=== PATIENT | male | born 1935 | race Caucasian/White ===

== ENCOUNTER 2017-01-27 23:02 | Inpatient (IN) | payer MEDICARE, BC ==
--- NOTE | ~2017-01-27 | HP ---
History And Physical [address] [place]. [address] NAME: ANDRÉS MORFIN : 39 STATUS : ADM IN [facility]#: [id number] AGE: 82 ADM/REG DATE : 01/28/17 MR#: [id number] REPORT SERV DATE: 01/28/17 DICTATED BY: BRANDIE CANNON DATE: 01/28/17 REPORT STATUS : Draft TRANSCRIBED BY: MODRodrigo DATE: 01/28/17 DATE OF ADMISSION: 01/28/2017 CARDIOLOGY ADMISSION HISTORY AND PHYSICAL IDENTIFYING DATA: The patient is an 82-year-old man with known coronary heart disease, status post coronary artery bypass grafting in the year 1996 with subsequent balloon angioplasty. CHIEF COMPLAINT: Epigastric/substernal chest pain, starting last night at 2000 hours. HISTORY OF PRESENT ILLNESS: Mr. Morfin is a pleasant 82-year-old man, who is a patient of Dr. Vini Alvarenga. The patient was in his usual state of health until last night around 08:00 p.m. The patient had the abrupt onset of a substernal/epigastric chest pain associated with nausea and diaphoresis. The patient took three nitroglycerin, but realized that his nitroglycerin tablets were at least a year old. He did not have significant relief, and therefore called emergency medical services. The patient reports that, his pain had nearly resolved at the time of EMS arrival. The patient was able to walk himself into the ambulance. He was brought to [facility] Emergency Room. At that time, the patient's 12-lead EKG showed no acute changes. The patient does have a history of chronic atrial fibrillation, for which he takes Coumadin. The patient's chest pain had resolved at that time, the patient was admitted to the Cardiology Service for further evaluation. The patient's initial troponin was found to be 3.5. A repeat troponin performed this morning was significantly increased at approximately 30. The patient remains completely chest pain- free at this time. He further denies any unusual dyspnea, nausea, or indigestion. PAST MEDICAL HISTORY: 1. Coronary artery disease, status post bypass grafting as noted above. 2. Chronic atrial fibrillation. 3. Hypertension. 4. Dyslipidemia. PAST SURGICAL HISTORY: Significant only for coronary artery bypass grafting surgery. The patient's graft anatomy is a left internal mammary artery to LAD, saphenous vein graft to the posterior descending artery and previous saphenous vein graft to an obtuse marginal, which was found to be occluded at the time of the patient's last cardiac catheterization on 01/08/2007. FAMILY HISTORY: Negative for early coronary heart disease or sudden cardiac . SOCIAL HISTORY: The patient does not smoke cigarettes. He reports, he drinks three to four beers per day. He has no known history of drug use. The patient is and lives independently at home. ALLERGIES: THE PATIENT HAS DOCUMENTED ALLERGIES TO CODEINE AND POLLEN EXTRACTS. History And Physical [address] [address] NAME: ANDRÉS MORFIN : 39 STATUS : ADM IN [facility]#: [id number] AGE: 82 ADM/REG DATE : 01/28/17 MR#: [id number] REPORT SERV DATE: 01/28/17 DICTATED BY: BRANDIE CANNON DATE: 01/28/17 REPORT STATUS : Draft TRANSCRIBED BY: RUBEN DATE: 01/28/17 HOME MEDICATIONS: 1. Amlodipine 10 mg p.o. daily. 2. Aspirin 81 mg p.o. at bedtime. 3. Atorvastatin 40 mg p.o. at bedtime. 4. Hydrochlorothiazide 12.5 mg p.o. q.a.m. 5. Sublingual nitroglycerin 0.4 mg p.r.n. for chest pain. 6. Probenecid 500 mg p.o. q.a.m. 7. Ramipril 10 mg p.o. at bedtime. 8. Coumadin 3.5 mg p.o. q.p.m. REVIEW OF SYSTEMS: A complete 12-system review was performed. This is noncontributory except for the pertinent positives and negatives noted in the history of present illness above. PHYSICAL EXAMINATION: VITAL SIGNS: Temperature is 97.9 degrees Fahrenheit, blood pressure is 143/75 mmHg, heart rate is 54 beats per minute and irregular, respirations 18, and oxygen saturation is 98% on a 2 L nasal cannula. CONSTITUTIONAL: The patient is a well-nourished, well-developed, elderly, white man, who is presently comfortable and in no acute distress. EYES: PERRL, EOMI, clear conjunctiva. HEAD/MNT: NCAT with moist mucous membranes and grossly normal hard and soft palate. NECK: Supple with no obvious thyromegaly or lymphadenopathy CARDIOVASCULAR: There is an irregularly irregular rhythm with a variable S1 and a physiologically split second heart sound. A faint grade 1 to 2 over 6 early peaking systolic murmur is noted at the right upper sternal border with radiation to the sternal notch. The carotid upstroke is normal. The jugular venous pressure appears normal. PULMONARY: Clear to auscultation bilaterally with no wheezing, rales, rhonchi, or dullness to percussion. ABDOMINAL: Soft, non-tender, non-distended with no hepatosplenomegaly noted. EXTREMITIES: No clubbing, cyanosis or edema. MUSCULOSKELETAL: Grossly normal strength and range of motion in all extremities INTEGUMENTARY: Skin appears intact with no bruises, wounds or active lesions noted NEURO/PSYC: Alert and oriented x3, with no dysarthria, facial droop or lateralizing weakness noted. 12-LEAD EKG: The 12-lead EKG shows atrial fibrillation with a slow ventricular response. There is early transition noted in the precordial leads with nonspecific ST/T-wave abnormalities. There is a single ventricular escape beat noted. The EKG is not significantly changed in comparison to a previous study from 05/2016. CHEST X-RAY: This reveals sternotomy changes with no other acute cardiopulmonary process. LABORATORY DATA: A urinalysis is normal. CBC shows a white blood cell count of 5.7, hemoglobin 15, hematocrit 41, platelets 203. Serum potassium is currently 4.2 up from 3.2 this morning. Chemistry profile from the evening of 01/27/2017 shows a sodium of 134, potassium 3.2, chloride 98, CO2 24, BUN 5, creatinine is 0.65, glucose is 111, calcium 8.3, History And Physical [address] [facility] [place]. [address] NAME: ANDRÉS MORFIN : 39 STATUS : ADM IN [facility]#: [id number] AGE: 82 ADM/REG DATE : 01/28/17 MR#: [id number] REPORT SERV DATE: 01/28/17 DICTATED BY: BRANDIE CANNON DATE: 01/28/17 REPORT STATUS : Draft TRANSCRIBED BY: MODL DATE: 01/28/17 magnesium 1.8. The patient's initial troponin I is 3.98. A repeat troponin I from this morning is 31.4. INR from the evening of 01/27/2017 is 1.9. ASSESSMENT AND PLAN: 1. Exd-UN-oaeeddb elevation myocardial infarction: The patient does have evidence of a type 1 myocardial infarction given the acute onset of his symptoms. The patient is presently chest pain-free, however he has had no imaging of his anatomy since the year 2006. The patient does have a 2+ right radial pulse. I feel it would be reasonable to proceed with coronary angiography, provided this could be accomplished from a radial approach. I will recheck an INR at this time to determine whether it is decreased enough to safely live a femoral approach. The patient has no overt contraindications to percutaneous coronary intervention as warranted. The patient does have known occlusion of the saphenous vein graft to the obtuse marginal. The patient is currently bradycardic, so we will not start therapy with beta harvey. We will start a heparin drip, and continue aspirin and atorvastatin. Further recommendations pending results of the patient's coronary angiogram. 2. Systolic murmur: The patient's last echocardiogram is from 12/14/2009. At that time, the patient had normal left ventricular systolic function with no significant valvular heart disease. The patient's exam suggests mild aortic stenosis versus aortic sclerosis without stenosis. I cannot exclude a degree of mitral regurgitation, the patient does have a holosystolic murmur noted at the apex. This may though be radiation of the patient's ejection murmur. A transthoracic echocardiogram will be performed prior to cardiac catheterization. JACOB/RUBEN Brandie Cannon MD / [id number] CC: Noam Martin M.D.
[2017-01-27 22:42] LABS: ER CBC TAT 0 Hrs 11 Mins; MEAN CORPUSCULAR HEMOGLOB 32.7 pg (26.0-34.0); RED CELL COUNT 4.28 10/6/uL (4.7-6.1); WHITE BLOOD CELLS 8.2 10/3/uL (4.5-10.5)
[2017-01-27 22:43] LABS: BASOPHILS 0.1 %; BASOPHILS ABSOLUTE 0.01 10/3/uL (0.0-0.16); EOSINOPHILS 1.1 %; EOSINOPHILS ABSOLUTE 0.09 10/3/uL (0.0-0.53); IMMATURE GRANULOCYTES 0.1 %; IMMATURE GRANULOCYTES ABSOLUTE 0.01 10/3/uL (0.0-0.11); LYMPHOCYTES 13.6 %; LYMPHOCYTES ABSOLUTE 1.11 10/3/uL (0.67-4.30); MEAN PLATELET VOLUME 10.1 fL (9.2-13.0); MONOCYTES 6.8 %; MONOCYTES ABSOLUTE 0.56 10/3/uL (0.21-1.20); NEUTROPHILS 78.3 %; NEUTROPHILS ABSOLUTE 6.41 10/3/uL (2.02-8.40); PLATELET COUNT 216 10/3/uL (150-400); RBC DISTRIBUTION WIDTH 13.2 % (12.0-16.0)
[2017-01-27 22:48] LABS: HEMATOCRIT 38.9 % (40.0-51.0); INTERNATIONAL NORMAL RATI 1.9 UNITS (-); MANUAL DIFF NO %; MEAN CORPUSCULAR VOLUME 90.9 fL (80-100); PARTIAL THROMBO TIME 35.9 SEC (22.5-37.2); PROTIME (NOT ORD) 21.5 SEC (12.0-14.5)
[2017-01-27 22:56] LABS: BUN (BLOOD UREA NITROGEN) 5 MG/DL (6-23); CALCIUM, SERUM 8.3 MG/DL (8.5-10.4); CHLORIDE, SERUM 98 MMOL/L (96-112); CO2 (CARBON DIOXIDE) 24 MMOL/L (24-34); CREATININE 0.65 MG/DL (0.70-1.30); GFR AFRICAN AMERICAN 106 ML/MIN (>=60); GFR NON AFRICAN AMERICAN 92 ML/MIN (>=60); GLUCOSE, SERUM 111 MG/DL (60-99); POTASSIUM, SERUM 3.2 MMOL/L (3.5-5.3); SODIUM, SERUM 134 MMOL/L (135-148)
[2017-01-27 22:57] LABS: CHEST PAIN PROFILE TAT 0 Hrs 26 Mins; TROPONIN I 3.98 NG/ML (<0.05)
[~2017-01-27 23:02] MED LIST: ALTACE10 MG PO; ASAB PO; BENEMID500 PO; C1 PO; COUMADIN4 MG PO; HCTZ12.5 PO; LIPITOR40 PO; MAGOX4 PO; NORV10 PO; PRILO PO
[2017-01-27] MEDS ORDERED: C1 PO (23:39)
[2017-01-27] MEDS ORDERED: NORV10 PO (23:40)
[2017-01-27] MEDS ORDERED: ALTACE10 MG PO (23:40)
[2017-01-27] MEDS ORDERED: LIPITOR40 PO (23:40)
[2017-01-27] MEDS ORDERED: HCTZ12.5 PO (23:40)
[2017-01-27] MEDS ORDERED: BENEMID500 PO (23:40)
[2017-01-27] MEDS ORDERED: ASAB PO (23:41)
[2017-01-27] MEDS ORDERED: NITROSTAT0.4 MG SL (23:42)
[2017-01-28 04:28] LABS: ASCORBIC ACID (UR NOT ORDER) NEG (NEG); BILIRUBIN, URINE NEGATIVE (NEG); KETONE, URINE NEGATIVE (NEG); LEUKOCYTE ESTERASE(NOT OR NEG (NEG); WBC (NOT ORDERED) (RFLEX) < 1 (0-5)
[2017-01-28 06:25] LABS: BASOPHILS 0.2 %; BASOPHILS ABSOLUTE 0.01 10/3/uL (0.0-0.16); EOSINOPHILS 1.1 %; EOSINOPHILS ABSOLUTE 0.06 10/3/uL (0.0-0.53); HEMATOCRIT 40.9 % (40.0-51.0); HEMOGLOBIN 14.7 g/dL (13.6-17.8); LYMPHOCYTES 22.6 %; LYMPHOCYTES ABSOLUTE 1.29 10/3/uL (0.67-4.30); MANUAL DIFF NO %; MEAN CORPUS HGB CONC 35.9 g/dL (32.0-36.0); MEAN CORPUSCULAR HEMOGLOB 33.3 pg (26.0-34.0); MEAN CORPUSCULAR VOLUME 92.5 fL (80-100); MEAN PLATELET VOLUME 10.2 fL (9.2-13.0); MONOCYTES 8.6 %; MONOCYTES ABSOLUTE 0.49 10/3/uL (0.21-1.20); NEUTROPHILS 67.5 %; NEUTROPHILS ABSOLUTE 3.86 10/3/uL (2.02-8.40); PLATELET COUNT 203 10/3/uL (150-400); RBC DISTRIBUTION WIDTH 13.1 % (12.0-16.0); RED CELL COUNT 4.42 10/6/uL (4.7-6.1); WHITE BLOOD CELLS 5.7 10/3/uL (4.5-10.5)
[2017-01-28 06:41] LABS: CHOL/HDL RATIO(NOT ORDER) 1.9 (0-5); CHOLESTEROL 113 MG/DL (< 200); HDL CHOLESTEROL 59 MG/DL (> 39); LDL CHOLESTEROL 47 MG/DL (< 130); NON-HDL CHOLESTEROL 54 MG/DL (< 160); POTASSIUM, SERUM 4.2 MMOL/L (3.5-5.3); SGPT(ALT) 29 U/L (5-65); TRIGLYCERIDE 35 MG/DL (< 150)
[2017-01-28 10:16] LABS: BUN (BLOOD UREA NITROGEN) 5 MG/DL (6-23); CALCIUM, SERUM 8.6 MG/DL (8.5-10.4); CHLORIDE, SERUM 104 MMOL/L (96-112); CREATININE 0.71 MG/DL (0.70-1.30); GFR AFRICAN AMERICAN 103 ML/MIN (>=60); GFR NON AFRICAN AMERICAN 89 ML/MIN (>=60); GLUCOSE, SERUM 126 MG/DL (60-99); SODIUM, SERUM 135 MMOL/L (135-148)
[2017-01-28 10:18] LABS: CO2 (CARBON DIOXIDE) 18 MMOL/L (24-34)
[2017-01-28 10:38] LABS: INTERNATIONAL NORMAL RATI 2.9 UNITS (-)
[2017-01-28 10:49] LABS: PARTIAL THROMBO TIME > 150.0 SEC (22.5-37.2)
[2017-01-28 12:44] LABS: INTERNATIONAL NORMAL RATI 1.8 UNITS (-); PARTIAL THROMBO TIME 28.7 SEC (22.5-37.2); PROTIME (NOT ORD) 20.3 SEC (12.0-14.5)
[2017-01-29 06:10] LABS: BASOPHILS 0.3 %; BASOPHILS ABSOLUTE 0.02 10/3/uL (0.0-0.16); EOSINOPHILS 1.5 %; EOSINOPHILS ABSOLUTE 0.09 10/3/uL (0.0-0.53); HEMATOCRIT 40.6 % (40.0-51.0); HEMOGLOBIN 14.5 g/dL (13.6-17.8); IMMATURE GRANULOCYTES 0.2 %; IMMATURE GRANULOCYTES ABSOLUTE 0.01 10/3/uL (0.0-0.11); LYMPHOCYTES 26.8 %; MEAN CORPUS HGB CONC 35.7 g/dL (32.0-36.0); MEAN CORPUSCULAR HEMOGLOB 33.3 pg (26.0-34.0); MEAN CORPUSCULAR VOLUME 93.1 fL (80-100); MONOCYTES 9.9 %; MONOCYTES ABSOLUTE 0.59 10/3/uL (0.21-1.20); NEUTROPHILS 61.3 %; NEUTROPHILS ABSOLUTE 3.67 10/3/uL (2.02-8.40); PLATELET COUNT 203 10/3/uL (150-400); RBC DISTRIBUTION WIDTH 13.2 % (12.0-16.0); RED CELL COUNT 4.36 10/6/uL (4.7-6.1)
[2017-01-29 06:11] LABS: MANUAL DIFF NO %
[2017-01-29 06:15] LABS: INTERNATIONAL NORMAL RATI 1.7 UNITS (-)
[2017-01-29 06:21] LABS: BUN (BLOOD UREA NITROGEN) 6 MG/DL (6-23); CALCIUM, SERUM 8.4 MG/DL (8.5-10.4); CHLORIDE, SERUM 103 MMOL/L (96-112); GFR AFRICAN AMERICAN 103 ML/MIN (>=60); GFR NON AFRICAN AMERICAN 89 ML/MIN (>=60); GLUCOSE, SERUM 103 MG/DL (60-99); POTASSIUM, SERUM 3.8 MMOL/L (3.5-5.3); SODIUM, SERUM 135 MMOL/L (135-148)
[2017-01-29 06:22] LABS: CO2 (CARBON DIOXIDE) 23 MMOL/L (24-34)
[2017-01-30 05:28] LABS: BASOPHILS 0.5 %; BASOPHILS ABSOLUTE 0.03 10/3/uL (0.0-0.16); EOSINOPHILS ABSOLUTE 0.12 10/3/uL (0.0-0.53); HEMATOCRIT 40.4 % (40.0-51.0); HEMOGLOBIN 14.3 g/dL (13.6-17.8); IMMATURE GRANULOCYTES 0.2 %; IMMATURE GRANULOCYTES ABSOLUTE 0.01 10/3/uL (0.0-0.11); LYMPHOCYTES 26.1 %; LYMPHOCYTES ABSOLUTE 1.59 10/3/uL (0.67-4.30); MEAN CORPUS HGB CONC 35.4 g/dL (32.0-36.0); MEAN CORPUSCULAR HEMOGLOB 33.1 pg (26.0-34.0); MEAN CORPUSCULAR VOLUME 93.5 fL (80-100); MEAN PLATELET VOLUME 10.3 fL (9.2-13.0); MONOCYTES 9.5 %; MONOCYTES ABSOLUTE 0.58 10/3/uL (0.21-1.20); NEUTROPHILS 61.7 %; NEUTROPHILS ABSOLUTE 3.76 10/3/uL (2.02-8.40); PLATELET COUNT 219 10/3/uL (150-400); RED CELL COUNT 4.32 10/6/uL (4.7-6.1); WHITE BLOOD CELLS 6.1 10/3/uL (4.5-10.5)
[2017-01-30 05:29] LABS: MANUAL DIFF NO %
[2017-01-30 05:31] LABS: INTERNATIONAL NORMAL RATI 1.5 UNITS (-); PROTIME (NOT ORD) 18.4 SEC (12.0-14.5)
[2017-01-30 05:40] LABS: CALCIUM, SERUM 8.3 MG/DL (8.5-10.4); CHLORIDE, SERUM 101 MMOL/L (96-112); CO2 (CARBON DIOXIDE) 26 MMOL/L (24-34); CREATININE 0.86 MG/DL (0.70-1.30); GFR AFRICAN AMERICAN 95 ML/MIN (>=60); GFR NON AFRICAN AMERICAN 82 ML/MIN (>=60); GLUCOSE, SERUM 122 MG/DL (60-99); POTASSIUM, SERUM 3.8 MMOL/L (3.5-5.3); SODIUM, SERUM 135 MMOL/L (135-148)
[2017-01-30 05:42] LABS: BUN (BLOOD UREA NITROGEN) 10 MG/DL (6-23)
== END 2017-01-30 11:04 | disposition home or self-care (01) | DRG 281 ==
LOC: ER 23:02 → 5NO 01-28 01:27
PROVIDERS: Hospitalist; Internal Medicine Cardiovascular Disease
PROC: 4A023N7 Measurement of Cardiac Sampling and Pressure, Left Heart, Percutaneous Approach (ICD-10-PCS; principal; 2017-01-28)
PROC: B2111ZZ Fluoroscopy of Multiple Coronary Arteries using Low Osmolar Contrast (ICD-10-PCS; 2017-01-28)
PROC: B2151ZZ Fluoroscopy of Left Heart using Low Osmolar Contrast (ICD-10-PCS; 2017-01-28)
PROC: B2131ZZ Fluoroscopy of Multiple Coronary Artery Bypass Grafts using Low Osmolar Contrast (ICD-10-PCS; 2017-01-28)
PROC: B2181ZZ Fluoroscopy of Left Internal Mammary Bypass Graft using Low Osmolar Contrast (ICD-10-PCS; 2017-01-28)
DX: I21.4 Non-ST elevation (NSTEMI) myocardial infarction (principal); I25.810 Atherosclerosis of coronary artery bypass graft(s) without angina pectoris; Z95.1 Presence of aortocoronary bypass graft; I10 Essential (primary) hypertension; E78.5 Hyperlipidemia, unspecified
CPT/HCPCS: 71010; 80048; 80061; 81001; 83735; 84460; 84484; 85025; 85610; 85730; 93005; 93459; 96374; 99152; 99153; 99285; A9270-GY; C1769; C1887; C1894; C8929; J2250; J3010; Q9957; Q9967